=== PATIENT | female | born 1930 | race Caucasian/White ===

== ENCOUNTER 2016-10-24 07:49 | Day surgery (SDC) | payer MEDICARE, OTHER ==
[~2016-10-24] VITALS: Ht 162.6 cm; Wt 68.5 kg
[2016-10-24] MEDS ORDERED: THYROGEN (08:11)
[2016-10-24] MEDS ORDERED: ALDACTAZIDE 251 EACH PO (08:25)
[2016-10-24] MEDS ORDERED: ASPIR-TRIN325 MG PO (08:26)
[2016-10-24] MEDS ORDERED: COQ1050 MG PO (08:27)
[2016-10-24] MEDS ORDERED: TIROSINT100 MCG PO (08:27)
[2016-10-24] MEDS ORDERED: CALCIUM 600 +1 EACH PO (08:27)
[2016-10-24] MEDS ORDERED: MAGNESIUM30 MG PO (08:28)
[2016-10-24] MEDS ORDERED: LYSINE1000 MG PO (08:28)
[2016-10-24] MEDS ORDERED: POTASSIUM CHLO10 MEQ PO (08:29)
[2016-10-24] MEDS ORDERED: TURMERIC500 M1 PO (08:30)
[2016-10-24] MEDS ORDERED: PRESERVISION A1 EAC1 PO (08:30)
[2016-10-24] MEDS ORDERED: VITAMIN C1000 MG PO (08:32)
[2016-10-24] MEDS ORDERED: VITAMIN B122500 MCG SL (08:32)
--- NOTE | 2016-10-24 08:52 | NUR ---
JUST A BRIEF VISIT WITH PT AND HER . SHE IS IN GOOD ATTITUDE. AFTER TALKING A FEW MINUTES WE PRAYED THEN NURSE CAME TO TAKE HER TO GET PROCEDURE DONE. WONDERFUL COUPLE.
--- NOTE | 2016-10-24 09:28 | NUR ---
10/24/16 0928 KrystleNicolas lundberg SAT 100, O2 TURNED OFF.
--- NOTE | 2016-10-25 12:08 | OR ---
[facility] [address], [place] [address] Signed DATE OF SERVICE: 10/24/2016 PREOPERATIVE DIAGNOSES: Change in bowel habits with loose stool and fecal urgency. Personal history of colorectal polyps in 2006 and 2009. Diverticulosis. Internal hemorrhoids. POSTOPERATIVE DIAGNOSES: Minimal to moderate sigmoid diverticulosis. Minimal to moderate internal hemorrhoids. PROCEDURE: Colonoscopy without biopsy. ESTIMATED BLOOD LOSS: None. INDICATIONS: Linda is an 86-year-old female, who I have known for quite a few years. In 2006 and 2009, we removed quite a bit of hyperplastic polyps. She also had an adenomatous polyp removed in 2006. She had been asked to come every 5 years for repeat colonoscopy so long as her health holds up. In the meantime, she had a change in bowel habits with loose stool and fecal urgency. She has had at least 3 days a week. She had been asked to see me with respect to the above. She and her had lived [place] [facility] and have since moved down to [facility] within the last year. She told me today that her mother and father both in the mid 80s but the majority of her aunts and uncles all lived into their late 90s. The advertising writer feels that she has quite a few years ahead of her. We also reviewed the records and see that she has the diverticulosis and some internal hemorrhoids. She does not feel like the hemorrhoids been bothering her. I explained to Linda given her current situation, it would probably be fine to go ahead and perform a colonoscopy. If this is negative we probably would need to do any further colonoscopies unless something is changed once again. In the office, I had given her a pamphlet on colonoscopy, we looked at that together in detail. She understands the nature of the test along with the risks including, but not limited to gas bloating, crampy abdominal pain, bleeding, perforation requiring surgery, and missed diagnosis. She also understands the need for IV conscious sedation. She has done well with Versed and fentanyl in the past. She has expressed understanding and wished to proceed. PROCEDURE: Patient was taken into endoscopy suite and placed in the left lateral decubitus position. She was given divided doses of 3 mg of Versed and 125 mcg of fentanyl. A digital rectal exam was performed and this was unremarkable. The adult colonoscope was Electronically Signed By: ADRIAN LAGUNAS MD 10/25/16 1208 PATIENT NAME: LINDA KING OPERATIVE REPORT DATE OF : 32 PHYSICIAN: ADRIAN LAGUNAS MD REPORT #: [id number] REPORT IS CONFIDENTIAL AND NOT TO BE RELEASED WITHOUT AUTHORIZATION [facility] [address], [place] [address] Signed introduced and advance d all around into the cecum under direct visualization of the camera. We used a little extra sedation and some abdominal compression, and then the scope passed quite nicely into the cecum itself. Her prep was quite good. The scope was then slowly withdrawn. We saw few diverticula in the sigmoid colon. In the rectum, we saw some previous scar tissue from polypectomies in the past. Upon retroflexion of the scope, she has some just very standard minimal to moderate internal hemorrhoid tissue. Otherwise, no pathology noted above the anal canal. After this, the gas was suctioned out the gastroscope and the colonoscope removed. Linda tolerated the procedure quite well. RECOMMENDATIONS: Linda can follow up in our office as needed. In the meantime, she should consider using a fiber product such as Benefiber to help keep her stool soft and regular. MD LILLIAM Mckeon/Lillie /[id number] cc: Hima Victor MD Electronically Signed By: ADRIAN LAGUNAS MD 10/25/16 1208 PATIENT NAME: LINDA KING OPERATIVE REPORT DATE OF : 32 PHYSICIAN: ADRIAN LAGUNAS MD REPORT #: [id number] REPORT IS CONFIDENTIAL AND NOT TO BE RELEASED WITHOUT AUTHORIZATION
== END 2016-10-24 10:02 | disposition home or self-care (01) ==
LOC: OPS 07:49 → DS 07:49 → OPS 09:00 → DS 09:00 → OPS 10:02
PROVIDERS: Colon & Rectal Surgery
PROC: 0DJD8ZZ Inspection of Lower Intestinal Tract, Via Natural or Artificial Opening Endoscopic (ICD-10-PCS; principal; 2016-10-24 09:00)
DX: K57.30 Diverticulosis of large intestine without perforation or abscess without bleeding (principal); K64.8 Other hemorrhoids; I10 Essential (primary) hypertension; I87.2 Venous insufficiency (chronic) (peripheral); Z87.440 Personal history of urinary (tract) infections; E03.9 Hypothyroidism, unspecified; M19.90 Unspecified osteoarthritis, unspecified site; Z86.010 Personal history of colon polyps; Z86.73 Personal history of transient ischemic attack (TIA), and cerebral infarction without residual deficits; Z90.710 Acquired absence of both cervix and uterus; Z90.49 Acquired absence of other specified parts of digestive tract; Z90.12 Acquired absence of left breast and nipple; Z79.899 Other long term (current) drug therapy
CPT/HCPCS: 99152; 99153; J2250; J2270; J3010; J7120